=== PATIENT | female | born 1955 | race Caucasian/White ===

== ENCOUNTER 2017-06-20 07:06 | Day surgery (SDC) | payer BC ==
[~2017-06-20 07:06] MED LIST: Lactated Ringers 1,000 ML IV SCH; Sodium Chloride 0.9% 10 ML Syringe FLUSH PRN; ceFAZolin 1 GM in Sodium Chloride 0.9% 50 ML IV ONE
--- NOTE | 2017-06-20 08:08 | PREOP ---
ADMISSION DATE: 06/20/2017 CHIEF COMPLAINT: Umbilical hernia. HISTORY OF PRESENT ILLNESS: This is a 62-year-old white female who is referred with a reducible hernia. It has been present for several months, pops out, does cause some discomfort especially at work. No obstructive symptoms noted. She does note that she has had this repaired in the past and then it "broke open." MEDICATIONS: Include: 1. Os-Rojas 500 two times a day. 2. Multivitamin 1 tablet per day. 3. [employer]-3 fatty oil 1000 mg capsule once per day. 4. Osteo Bi-Flex 1 capsule once per day. ALLERGIES: She has an allergy to adhesive tape. PAST MEDICAL HISTORY: Significant for diverticulosis of the colon, posterior tibial tendon dysfunction, rotator cuff tear, and history of tobacco use. PAST SURGICAL HISTORY: Significant for left shoulder arthroscopy with rotator cuff repair, bunionectomy, foot surgery, hernia surgery in 2012, which consisted of an inguinal hernia repair. FAMILY HISTORY: Significant for colorectal cancer and stroke as well as hypertension and hypercholesterolemia. She is with 5 children. She works as a head banquet waiter/waitress. She is a former smoker, quit in 2007. Have approximately 1 can a beer per week. REVIEW OF SYSTEMS: CONSTITUTIONAL: Negative. HEENT: Negative. RESPIRATORY: Negative. CARDIOVASCULAR: Essentially negative. GASTROINTESTINAL: Essentially negative except for some abdominal discomfort. MUSCULOSKELETAL: Positive for some arthralgias especially in her right shoulder. ALLERGIES: She has no environmental or food allergies. PHYSICAL EXAMINATION: GENERAL: This is a well-developed, well-nourished white female, appearing in no acute distress. HEENT: Grossly within normal limits. LUNGS: Clear to auscultation. HEART: Had a regular rate and rhythm. ABDOMEN: Soft, nontender with a small reducible hernia in the periumbilical area. ASSESSMENT: Umbilical hernia. PLAN: Umbilical hernia repair. Procedure and risks explained to the patient to include bleeding, infection, use of mesh as well as injury to the underlying intestine. The patient expresses understanding and she asked us to proceed. /[id number] /MODL
[2017-06-20] MEDS ORDERED: ceFAZolin 1 GM Vial IV ONE (08:15)
[2017-06-20] MEDS ORDERED: ceFAZolin 1 GM in Sodium Chloride 0.9% 50 ML IV ONE (08:15)
[2017-06-20] MEDS ORDERED: Propofol 200 MG/20 ML SDV IV ONE (08:30)
[2017-06-20] MEDS ORDERED: Midazolam 1 MG/ML 2 ML SDV IV ONE (08:30)
[2017-06-20] MEDS ORDERED: Dexamethasone 4 MG/ML 5 ML MDV IVPUSH ONE (08:30)
[2017-06-20] MEDS ORDERED: HYDROmorphone 2 MG/ML SDV IV ONE (08:30)
[2017-06-20] MEDS ORDERED: Ketorolac 30 MG/ML SDV IVPUSH ONE (08:30)
[2017-06-20] MEDS ORDERED: fentaNYL 100 MCG/2 ML SDV IV ONE (08:30)
[2017-06-20] MEDS ORDERED: Ondansetron 4 MG/2 ML SDV IVPUSH ONE (08:30)
[2017-06-20] MEDS ORDERED: Lidocaine 1% with EPINEPHrine 1:100,000 20 ML MDV INJECT ONE (08:43)
[2017-06-20] MEDS ORDERED: Bupivacaine 0.5% 50 ML MDV INJECT ONE (08:43)
--- NOTE | 2017-06-20 09:04 | PCM.OPNOTE ---
- General Post-Op/Procedure Note Date of Surgery/Procedure: 06/20/17 Operative Procedure(s): umbilical hernia repair with mesh Findings: umbilical hernia Pre Op Diagnosis: recurrent umbilical hernia Post-Op Diagnosis: Same Anesthesia Technique: General ET Tube, Local (5 ml 1 % lido with epi/0.5% buvipicaine) Primary Surgeon: Neo Gaviria Anesthesia Provider: Hai Camarillo Pathology: none Complications: None Condition: Good Free Text/Narrative:: see dictation
[2017-06-20] MEDS ORDERED: HYDROmorphone 2 MG/ML SDV IVPUSH PRN (09:14)
[2017-06-20] MEDS ORDERED: Naloxone 0.4 MG/ML SDV IVPUSH PRN (09:14)
[2017-06-20] MEDS ORDERED: Promethazine 25 MG/ML SDV IM PRN (09:14)
[2017-06-20] MEDS ORDERED: HYDROmorphone 2 MG/ML SDV IV PRN (09:14)
[2017-06-20] MEDS ORDERED: Albuterol 0.083% 2.5 MG/3 ML Neb Soln NEB PRN (09:14)
[2017-06-20] MEDS ORDERED: Ondansetron 4 MG/2 ML SDV IVPUSH PRN (09:14)
[2017-06-20] MEDS ORDERED: fentaNYL 100 MCG/2 ML SDV IVPUSH PRN (09:14)
[2017-06-20] MEDS ORDERED: Lactated Ringers 1,000 ML IV SCH (09:15)
[2017-06-20] MEDS ORDERED: Acetaminophen/HYDROcodone 325-5 MG Tab PO ONE ×2 (09:48→10:15)
[2017-06-20 10:27] VITALS: BP 115/77
--- NOTE | 2017-06-20 11:47 | OR ---
DATE OF OPERATION: 06/20/2017 SURGEON: Neo Gaviria MD PROCEDURE PERFORMED: Repair of recurrent umbilical hernia. PREOPERATIVE DIAGNOSIS: Recurrent umbilical hernia. POSTOPERATIVE DIAGNOSIS: Recurrent umbilical hernia. INDICATIONS FOR PROCEDURE: This is a 62-year-old white female who has had a previous umbilical hernia repair. She was offered and accepted colonoscopy. FINDINGS: A small 1 cm defect was identified. This was repaired with a Ventralex ST hernia patch, reference #[id number], lot number [id number] with an expiration date , and a total of 5 mL of 1:1 mixture of 1% lidocaine with epinephrine 0.5% bupivacaine was used. DESCRIPTION OF PROCEDURE: After an excellent general anesthetic was administered, the patient was prepped and draped in the usual sterile manner. Our local was used to infiltrate around the hernia. An incision was made through the previous incision. Sharp dissection was carried out dissecting the hernia sac free from the surrounding subcu fat and then this was taken down to the level of the anterior abdominal wall fascia. The defect was widened a little bit through our dissection. The preperitoneal fat was reduced and the excess fat rather adhered to the abdominal wall was removed bluntly. Bleeding was controlled with electrocautery. Our mesh was then inserted into the patient's abdominal cavity. The 2 tails were gently pulled up placing the mesh against the anterior abdominal wall. This defect was then closed with a running 0 Prolene and the 2 tails were excised. The umbilicus was tacked to the anterior abdominal wall with an 0 Vicryl and the skin was closed with a running 4-0 Vicryl and then Dermabond. Dressing was applied. Needle, sponge, and instrument counts were reported as correct. The patient was taken to recovery room in good condition. /[id number] /MODL
== END 2017-06-20 11:13 | disposition home or self-care (01) ==
LOC: FB.SDS 07:06
PROVIDERS: ATTEND Surgery
DX: K42.9 Umbilical hernia without obstruction or gangrene (principal); Z79.899 Other long term (current) drug therapy; Z91.09 Other allergy status, other than to drugs and biological substances; Z87.891 Personal history of nicotine dependence
CPT/HCPCS: 49585; A9270; C1781; J0690; J7120; J1100; J1170; J1885; J2250; J2405; J2704; J3010

== ENCOUNTER 2019-01-28 07:11 | Day surgery (SDC) | payer BC ==
[2019-01-28] MEDS ORDERED: Midazolam 1 MG/ML 2 ML SDV IV ONE (07:12)
[2019-01-28] MEDS ORDERED: Propofol 200 MG/20 ML SDV IV ONE (07:12)
[2019-01-28] MEDS ORDERED: Lactated Ringers 1,000 ML IV SCH (07:15)
[2019-01-28] MEDS ORDERED: Sodium Chloride 0.9% 10 ML Syringe FLUSH PRN (07:15)
--- NOTE | 2019-01-28 08:55 | PCM.OPNOTE ---
- General Post-Op/Procedure Note Date of Surgery/Procedure: 01/28/19 Operative Procedure(s): c scope Findings: diverticulosis Pre Op Diagnosis: hx of colon polyps Post-Op Diagnosis: diverticulosis Anesthesia Technique: MAC Primary Surgeon: Neo Gaviria Anesthesia Provider: Maria Isabel Lam Pathology: none Complications: None Condition: Good Free Text/Narrative:: see dictation
[2019-01-28 10:04] VITALS: BP 134/77; PULSE 46
--- NOTE | 2019-01-28 12:34 | OR ---
DATE OF OPERATION: 01/28/2019 SURGEON: Neo Gaviria MD PROCEDURE PERFORMED: Colonoscopy. PREOPERATIVE DIAGNOSIS: Personal history of colon polyps. POSTOPERATIVE DIAGNOSIS: Sigmoid diverticulosis. INDICATIONS FOR PROCEDURE: This is a 64-year-old white female presents for followup colonoscopy. She has a personal history of colon polyps. DESCRIPTION OF OPERATION: After an excellent IV sedation was administered, digital rectal exam was performed. No marked abnormality was noted. Flexible colonoscope was inserted and advanced to the cecum. Prep was excellent. The following findings were noted. Ascending Colon: Unremarkable. Transverse Colon: Unremarkable. Descending Colon: Unremarkable. Sigmoid: Very mild diverticulosis. Rectum and Anus: Unremarkable. The patient also asked us to "evaluate her hemorrhoids" and really there was no marked hemorrhoidal tissue was noted. The patient tolerated the procedure well. RECOMMENDATIONS: Repeat scope in 10 years. /[id number] TIFFANI/BALTA
== END 2019-01-28 10:16 | disposition home or self-care (01) ==
LOC: FB.SDS 07:11
PROVIDERS: ATTEND Surgery
DX: Z12.11 Encounter for screening for malignant neoplasm of colon (principal); K57.30 Diverticulosis of large intestine without perforation or abscess without bleeding; K64.9 Unspecified hemorrhoids; Z88.5 Allergy status to narcotic agent; Z91.048 Other nonmedicinal substance allergy status; Z86.010 Personal history of colon polyps; Z87.891 Personal history of nicotine dependence; Z79.899 Other long term (current) drug therapy
CPT/HCPCS: 45378; J2250; J2704; J7120